=== PATIENT | male | born 1985 | race American Indian/Alaskan Native ===

== ENCOUNTER 2020-09-12 18:01 | Emergency (ER) | payer SELFPAY ==
[2020-09-12 18:22] VITALS: BP 135/81
[2020-09-12] MEDS ORDERED: PENICILLIN G BENZATHINE 1.2 MILLION UNIT/2 ML INJ IM ONE (18:28)
[2020-09-12] MEDS ORDERED: ACETAMINOPHEN 500 MG TAB PO ONE (18:28)
[2020-09-12] MEDS ORDERED: IBUPROFEN 800 MG TAB PO ONE (18:29)
--- NOTE | 2020-09-12 19:47 | Emergency Department Report ---
ED ENT HPI - General Chief complaint: Sore Throat Stated complaint: ITCHY THROAT/FEVER Time Seen by Provider: 09/12/20 18:38 Source: patient Mode of arrival: Ambulatory Limitations: No Limitations - History of Present Illness MD complaint: sore throat -: days(s) (2) Location: throat Severity: moderate Quality: aching Consistency: constant Improves with: none Worsens with: position, eating Context- Dental: other Associated Symptoms: sore throat. denies: cough, gum swelling, toothache, tinnitus, discharge from ear, rhinorrhea - Related Data Allergies Allergy/AdvReac Type Severity Reaction Status Date / Time No Known Allergies Allergy Unverified 09/12/20 18:22 ED Dental HPI - General Chief complaint: Sore Throat Stated complaint: ITCHY THROAT/FEVER Time Seen by Provider: 09/12/20 18:38 Source: patient Mode of arrival: Ambulatory Limitations: No Limitations - Related Data Allergies Allergy/AdvReac Type Severity Reaction Status Date / Time No Known Allergies Allergy Unverified 09/12/20 18:22 ED Review of Systems ROS: Stated complaint: ITCHY THROAT/FEVER Other details as noted in HPI Comment: All other systems reviewed and negative ED Past Medical Hx - Past Medical History Previous Medical History?: No - Surgical History Past Surgical History?: No ED Physical Exam - General Limitations: No Limitations General appearance: alert, in no apparent distress - Head Head exam: Present: atraumatic, normocephalic - Eye Eye exam: Present: normal appearance - ENT ENT exam: Present: mucous membranes moist, other (Exudative pharynx is noted. Airway patent tongue uvula midline some mild swelling to the left side but no evidence of qinsy) - Neck Neck exam: Present: normal inspection - Respiratory Respiratory exam: Present: normal lung sounds bilaterally. Absent: respiratory distress - Cardiovascular Cardiovascular Exam: Present: regular rate, normal rhythm. Absent: systolic murmur, diastolic murmur, rubs, gallop - GI/Abdominal GI/Abdominal exam: Present: soft, normal bowel sounds - Rectal Rectal exam: Present: deferred - Extremities Exam Extremities exam: Present: normal inspection - Back Exam Back exam: Present: normal inspection - Neurological Exam Neurological exam: Present: alert, oriented X3 - Psychiatric Psychiatric exam: Present: normal affect, normal mood - Skin Skin exam: Present: warm, dry, intact, normal color. Absent: rash ED Course Vital Signs 04/13/21 18:19 Temperature 102.4 F H Pulse Rate 91 H Respiratory 20 Rate Blood Pressure 135/81 [Right] O2 Sat by Pulse 97 Oximetry ED Medical Decision Making - Medical Decision Making 34-year-old -[place] male with asthma department with sore throat and fever and exudative pharyngitis. Treated accordingly with Decadron as well as Bicillin 1.2. Also treated his temperature with 1 g of Tylenol. Has been advised to utilize Tylenol as needed and hydrate well. Is also been advised to follow-up with a primary care provider in 2 to 3 days for reevaluation. He speaking in normal sentences voice is not muffled there is no drooling. No signs of any Kameron's. Tongue and uvula are midline. Mr. Calles presents with no history of any compromised nontoxic appearance patient is euvolemic with no trismus no airway compromise unable to tolerate p.o. given history and examination low suspicion for this presentation being caused by peritonsillar abscess, Ford, bacterial tracheitis, acute HIV, epiglottitis, retropharyngeal abscess. Critical care attestation.: If time is entered above; I have spent that time in minutes in the direct care of this critically ill patient, excluding procedure time. ED Disposition Clinical Impression: Exudative pharyngitis Disposition: -01 TO HOME OR SELFCARE Is pt being admited?: No Does the pt Need Aspirin: No Condition: Stable Instructions: Strep Throat, Adult, [id number] Referrals: [facility] [Provider Group] - 3-5 Days
== END 2020-09-12 19:41 | disposition home or self-care (01) ==
LOC: ED 18:01
DX: J02.9 Acute pharyngitis, unspecified (principal)
CPT/HCPCS: 96372; 99281; J0561